=== PATIENT | female | born 1965 | race Caucasian/White ===

== ENCOUNTER → 2017-10-20 10:34 | Outpatient (CLI) | payer OTHER, SELFPAY ==
--- NOTE | 2017-10-20 | DI.ECHO.S_ITS ---
[facility]---------+ [facility] +---------+ : : [address] : [place] : : : : [id number] : : : : Phone: [phone]+ Echocardiogram Report + + :Name: SAMIR HUNG Study Date: 10/20/2017 Height: 63 in : :[facility] Weight: 154 lb : : Gender: Female BSA: 1.7 m2 : :: 1965 Age: 52 yrs BP: 112/72 mmHg: :Reason For Study: Cardiomyopathy : :Ordering Physician: Mingo : :Linda Performed By: Sally Llamas : :Referring: Cynthia Richmond : + + Interpretation Summary The left ventricle is normal in size. Left ventricular ejection fraction is estimated to be 55%. Assessment of diastolic parameters indicates normal left ventricular diastolic function and normal filling pressures. The right ventricle grossly appears normal in size with probable normal systolic function. There is a pacemaker lead in the right ventricle. The right ventricular systolic pressure is estimated at 26 mmHg assuming a right atrial pressure of 3 mm Hg. The left atrial size is normal. Right atrial size is normal. There is no significant valvular heart disease. The aortic root is normal size. Procedure: A two-dimensional transthoracic echocardiogram with color flow and Doppler was performed. The study quality was technically adequate. Comparison is made with the echocardiogram of 09-14-16. The patient has a paced rhythm. Left Ventricle: The left ventricle is normal in size. There is normal left ventricular wall thickness. Left ventricular systolic function is normal without focal wall motion abnormalities. Left ventricular ejection fraction is estimated to be 55%. Assessment of diastolic parameters indicates normal left ventricular diastolic function and normal filling pressures. Right Ventricle: The right ventricle grossly appears normal in size with probable normal systolic function. There is a pacemaker lead in the right ventricle. Atria: The left atrial size is normal. Right atrial size is normal. There is a catheter/pacemaker lead seen in the right atrium. The interatrial septum is intact with no evidence for an atrial septal defect. Mitral Valve: The mitral valve is normal in structure and function. There is no mitral regurgitation noted. Aortic Valve: The aortic valve is trileaflet. The aortic valve opens well. No aortic regurgitation is present. Tricuspid Valve: The tricuspid valve is normal in structure and function. There is trace tricuspid regurgitation. The right ventricular systolic pressure is estimated at 26 mmHg assuming a right atrial pressure of 3 mm Hg. Pulmonic Valve: The pulmonic valve is not well seen, but is grossly normal. There is no pulmonic valvular regurgitation. There is no significant valvular heart disease. Great Vessels: The aortic root is normal size. The dimensions of the ascending aorta are normal. The IVC is of normal diameter and collapses greater than 50% with a sniff. This suggests a low right atrial pressure of 3 mm Hg. Pericardium/ Pleura There is no pericardial effusion. There is no pleural effusion. MMode/2D Measurements & Calculations LVIDd: 5.1 cm Ao root diam: 2.9 cm LVIDs: 3.4 cm Aortic Jxn: 2.7 cm FS: 33.8 % asc Aorta Diam: 3.0 cm EPSS: 0.53 cm Ao Arch Diam (Prox Trans): 2.9 cm IVSd: 0.92 cm LVPWd: 0.92 cm LV fink. diameter/BSA (cm/m^2): 2.9 LV sys. diameter/BSA (cm/m^2): 1.9 LA dimension: 3.0 cm RA long axis: 4.1 cm LA A2 area: 14.6 cm2 RA area: 12.9 cm2 LA A4 area: 13.4 cm2 RA vol: 34.4 ml LA length (vol): 4.1 cm RA : 19.9 ml/m2 LA vol: 40.7 ml IVC diam: 1.7 cm LA vol index: 23.5 ml/m2 RVDd major: 5.3 cm RVD1 (basal): 3.8 cm RVD2 (mid): 3.3 cm Doppler Measurements & Calculations Ao V2 max: 169.4 cm/sec MV E max amadou: 86.4 cm/sec Ao V2 mean: 93.0 cm/sec MV A max amadou: 80.2 cm/sec Ao max P.5 mmHg MV E/A: 1.1 Ao mean P.4 mmHg Med Peak E' Amadou: 7.6 cm/sec Ao V2 VTI: 32.5 cm E/E' med: 11.4 Lat Peak E' Amadou: 9.9 cm/sec E/E' lat: 8.7 E/e' average: 10.1 MV dec time: 0.21 sec MV P1/2t: 62.4 msec TR max amadou: 238.7 cm/sec MV P1/2t max amadou: 86.0 cm/sec TR max P.8 mmHg MVA(P1/2t): 3.5 cm2 PA V2 max: 72.8 cm/sec PA V2 mean: 44.1 cm/sec PA mean P.95 mmHg PA Accel Time: 0.14 sec Reading Physician:CHARLES
== END ==
PROVIDERS: PCP Internal Medicine; Visit Provider Physician Assistant Medical
DX: I42.8 Other cardiomyopathies (principal); Z95.0 Presence of cardiac pacemaker
CPT/HCPCS: 93306

== ENCOUNTER → 2018-05-10 16:13 | Outpatient (CLI) | payer OTHER, SELFPAY ==
--- NOTE | 2018-05-10 16:18 | DI.MG.S_ITS ---
BILATERAL DIGITAL SCREENING MAMMOGRAM 3D/2D WITH CAD: 05/10/2018 CLINICAL: Routine screening. Comparison is made to exams dated: 05/31/2016 mammogram, 05/30/2015 mammogram, and 05/05/2015 mammogram - [facility]. The tissue of both breasts is heterogeneously dense. This may lower the sensitivity of mammography. Current study was also evaluated with a Computer Aided Detection (CAD) system. There is a benign biopsy clip in the left breast. No significant masses, calcifications, or other findings are seen in either breast. There has been no significant interval change. IMPRESSION: NEGATIVE There is no mammographic evidence of malignancy. A 1 year screening mammogram is recommended. This exam was interpreted at Station ID: [id number]. NOTE: For mammograms, a report in lay terms will be sent to the patient. Approximately 15% of breast malignancies will not be visualized mammographically. In the management of a palpable breast mass, a negative mammogram must not discourage biopsy of a clinically suspicious lesion. Electronically Signed By: Yossi swain/darrick:05/10/2018 17:07:54 letter sent: Normal Exam ACR BI-RADS Category 1: Negative 3341F
== END ==
PROVIDERS: Family Provider Internal Medicine; PCP Internal Medicine; Visit Provider Internal Medicine
DX: Z12.31 Encounter for screening mammogram for malignant neoplasm of breast (principal)
CPT/HCPCS: 77063; 77067

== ENCOUNTER 2018-09-11 07:29 | Day surgery (SDC) | payer OTHER, SELFPAY ==
--- NOTE | 2018-09-11 | PATH_ITS ---
[facility] Accession Number: [id number] . 01 Material submitted: . PART A: cecum - CECAL POLYPS X5 PART B: colon - TRANSVERSE COLON POLYP X5 . 02 Diagnosis: A. Cecum, Polyps: Fragments of tubular adenoma and fragments of colonic mucosa with no diagnostic abnormality (5 polyps removed). . B. Transverse Colon, Polyps: Tubular adenoma x4. Colonic mucosa with no diagnostic abnormality, consistent with polypoid redundancy x1. BFI/09/12/2018 . 02 Electronically signed: . Jonathan Matias MD, PhD, Pathologist NPI- [id number] . 01 Gross description: . Part A: CECAL POLYPS X5: Received in formalin are multiple fragment(s) of ceballos, soft tissue measuring 0.1 x 0.1 x 0.1 cm to 0.3 x 0.3 x 0.2 cm which is entirely submitted and submitted entirely in 1 cassette(s) Part B: TRANSVERSE COLON POLYP X5: Received in formalin are multiple fragment(s) of ceballos, soft tissue measuring 0.1 x 0.1 x 0.1 cm to 0.3 x 0.3 x 0.3 cm which is entirely submitted and submitted entirely in 1 cassette(s) /DMC /DMC . 02 Pathologist provided ICD-10: D12.0, D12.3 . 02 CPT . 831714, 535487 Performed at: [facility] [address], [place], [place] [id number] MD Yossi Mcclure MD Phone: [phone] [facility]formed at: [facility] [address] [place], [place] [id number] MD Radha Rivera MD Phone: [phone]
[2018-09-11 08:00] VITALS: BP 123/84; PULSE 108; RESP 17; TEMP 36.6; O2SAT 98; BMI 23.9
[2018-09-11] MEDS: SODIUM CHLORIDE 0.9% 1,000 ML 200 ML IV (08:08)
--- NOTE | 2018-09-11 08:38 | PM.HP.1 ---
History of Present Illness Date Patient Seen: 09/11/18 Time Patient Seen: 08:38 Chief complaint: [id number] Narrative: Health unchanged since recent clinic note on 08/21/2018 Ready for screening colonoscopy All questions answered Patient History Medical History (Updated 08/21/18 @ 09:24 by Cece Marx RN) ICD (implantable cardioverter-defibrillator) battery depletion (Chronic) Meningioma (Chronic) Surgical History (Updated 07/05/17 @ 06:33 by Conversion Provider) Status post arthroscopy Family History (Updated 08/21/18 @ 09:25 by Cece Marx RN) Father Age: 74 Chronic cardiac arrhythmia Hypertension Heart disease Mother Age: 72 COPD (chronic obstructive pulmonary disease) Hypothyroid Sister Age: 54 Hypoglycemia Sister Age: 42 Asthma Social History (Updated 08/21/18 @ 09:27 by Cece Marx RN) marital status: household members: spouse occupational status: employed Smoking Status: Never smoker alcohol intake: current substance use type: does not use Family & Social History Family History (Updated 08/21/18 @ 09:25 by Cece Marx RN) Father Age: 74 Chronic cardiac arrhythmia Hypertension Heart disease Mother Age: 72 COPD (chronic obstructive pulmonary disease) Hypothyroid Sister Age: 54 Hypoglycemia Sister Age: 42 Asthma Social History: household members spouse Tobacco & Substance use: Smoking Status Never smoker alcohol intake current Meds Home Medications Medication Instructions Recorded Confirmed Type lisinopril 2.5 mg PO QDAY #0 09/28/16 09/11/18 History metoprolol succinate [Toprol XL] 25 mg PO QDAY #0 09/28/16 08/21/18 History cyanocobalamin (vitamin B-12) 1,000 mcg PO QDAY #0 05/17/17 09/11/18 History sumatriptan 25 mg tablet 25 mg PO Q2-4H PRN 08/21/18 08/21/18 History topiramate XR 25 mg 25 mg PO DAILY 08/21/18 08/21/18 History capsule,extended release 24 hr Allergies Allergy/AdvReac Type Severity Reaction Status Date / Time mushroom Allergy Unknown Verified 09/11/18 07:51 venom-honey bee Allergy Unknown Verified 09/11/18 07:51 Exam Vital Signs (past 8 hours): - 09/11/18 08:00 Temperature 97.8 F Pulse Rate 108 H Respiratory Rate 17 Blood Pressure 123/84 Pulse Oximetry 98 Oxygen Delivery Method Room Air
[2018-09-11] MEDS: MIDAZOLAM 5 MG/5 ML VIAL IV (08:58)
[2018-09-11] MEDS: fentaNYL 250 MCG/5 ML INJ IV (08:58)
[2018-09-11] MEDS: GLUCAGON,HUMAN RECOMBINANT 1 MG/ML VIAL IV (09:25)
--- NOTE | 2018-09-11 09:33 | PM.OP.ENDO ---
Operative Date/Time/Diagnoses Date of procedure: 09/11/18 Time of procedure: 09:33 Pre-op diagnosis: Screening colonoscopy for colorectal cancer Post-op diagnosis: same Procedure & Clinicians Study performed: Complete screening colonoscopy Cold biopsy polypectomy times 10 Same procedure as scheduled: Yes Indications: 53-year-old woman presents for 1st ever screening colonoscopy, no intestinal symptoms Surgeon: Erick Welsh Procedure Notes SCOAP/Timeout: completed Procedure in detail: Patient was brought to the endoscopy suite, a time-out was completed. She was sedated with a total over the course of her procedure of 5 mg of midazolam and 175 mcg fentanyl. A digital rectal exam was performed without mass or lesions. 160 cm colonoscope was introduced through the anus and was advanced to the cecum without much difficulty. Cecum was identified with the appendiceal orifice and a prominent ileocecal valve. The scope was then slowly withdrawn. Within the cecum and proximal right colon 5 small polyps were identified -each was removed with Jumbo biopsy forceps. There were a small number of diverticuli noted in the right colon. Removing the scope further within the transverse colon an additional 5 small sessile polyps were identified. These were similarly removed with the Jumbo biopsy forceps. Carefully withdrawing the scope through the left sigmoid colon and rectum no further mucosal lesions were identified. There was a significant amount of sigmoid diverticulosis. The scope was retroflexed in the distal rectum and no additional lesions were identified Prep was excellent Scope withdrawal time: 31 minutes Sedation minutes: 47 Findings: diverticulosis and polyp Specimen(s): other (Cecal polyp x5, transverse colon polyps x5) Complications: none Impression: Right-sided diverticulosis Extensive sigmoid diverticulosis Five cecal polyps status post removal Five transverse colon polyp status post removal Recommendations: Colonscopy in 3 years Plan for aftercare: PACU then home Follow-up in office in 2 weeks -for consideration of genetic testing given total of 10 polyps Follow up: weeks Disposition: PACU
[2018-09-11 09:37] VITALS: BP 123/82; PULSE 78; RESP 12; TEMP 37.4; O2SAT 99
[2018-09-11 10:10] VITALS: BP 92/64; PULSE 65; TEMP 36.7; O2SAT 99
--- NOTE | 2018-09-11 10:17 | SUR.PHASEII ---
0937 Arrived from endo room, drowsy. VS stable. Denied pain, abd soft. Call light within reach. 1010 BP 92/64, pt reported mild dizziness. Additional water provided.
[2018-09-11 10:27] VITALS: BP 96/72
== END 2018-09-11 10:31 | disposition home or self-care (01) ==
PROVIDERS: Family Provider Internal Medicine; PCP Internal Medicine; Visit Provider Surgery
PROC: 0DJD8ZZ Inspection of Lower Intestinal Tract, Via Natural or Artificial Opening Endoscopic (ICD-10-PCS; CPT 45378; principal; 2018-09-11 08:45)
DX: Z12.11 Encounter for screening for malignant neoplasm of colon (principal); K57.30 Diverticulosis of large intestine without perforation or abscess without bleeding; D12.0 Benign neoplasm of cecum; D12.3 Benign neoplasm of transverse colon
CPT/HCPCS: 45380; 99152; 99153; J1610; J2250; J3010

== ENCOUNTER → 2019-11-15 07:13 | Outpatient (CLI) | payer OTHER, SELFPAY ==
[2019-11-15 08:09] LABS: Alanine Aminotransferase 16 IU/L (<35); Albumin 4.6 g/dL (3.5-5.0); Albumin Globulin Ratio 1.8 (1.0-2.8); Alkaline Phosphatase 70 U/L (38-126); Aspartate Aminotransferase 24 IU/L (14-36); BUN Creatinine Ratio 12.5 (6-22); Bilirubin Total 0.4 mg/dL (0.2-1.3); Blood Urea Nitrogen 12 mg/dL (7-17); Calcium 9.7 mg/dL (8.4-10.2); Carbon Dioxide 28 mmol/L (22-32); Chloride 105 mmol/L (98-107); Estimated Glomerular Filt Rate > 60.0 mL/min (>60); Globulin 2.6 g/dL (1.7-4.1); Glucose 104 mg/dL (70-100); HEMOLYSIS < 15 (0-50); Sodium 139 mmol/L (137-145); Total Protein 7.2 g/dL (6.3-8.2)
== END ==
PROVIDERS: Family Provider Internal Medicine; PCP Internal Medicine; Referring Provider Internal Medicine Cardiovascular Disease; Visit Provider Internal Medicine Cardiovascular Disease
DX: I46.9 Cardiac arrest, cause unspecified (principal); I49.01 Ventricular fibrillation
CPT/HCPCS: 36415; 80053

== ENCOUNTER → 2020-05-07 17:34 | Outpatient (CLI) | payer OTHER, SELFPAY ==
--- NOTE | 2020-05-07 17:37 | DI.MG.S_ITS ---
BILATERAL DIGITAL SCREENING MAMMOGRAM 3D/2D WITH CAD: 05/07/2020 CLINICAL: Routine screening. Family history of breast cancer. Comparison is made to exams dated: 05/10/2018 mammogram, 05/31/2016 mammogram, and 05/30/2015 mammogram - [facility]. The tissue of both breasts is heterogeneously dense. This may lower the sensitivity of mammography. Current study was also evaluated with a Computer Aided Detection (CAD) system. There is a stable benign focal asymmetry in both breasts. There also is a biopsy clip in the left breast. No significant masses, calcifications, or other findings are seen in either breast. There has been no significant interval change. IMPRESSION: BENIGN There is no mammographic evidence of malignancy. A 1 year screening mammogram is recommended. This exam was interpreted at Station ID: [id number]. NOTE: For mammograms, a report in lay terms will be sent to the patient. Approximately 15% of breast malignancies will not be visualized mammographically. In the management of a palpable breast mass, a negative mammogram must not discourage biopsy of a clinically suspicious lesion. Electronically Signed By: Sunil Ramirez acr/penrad:05/08/2020 08:22:57 letter sent: Normal Exam ACR BI-RADS Category 2: Benign Finding(s) 3342F
== END ==
PROVIDERS: Family Provider Internal Medicine; PCP Internal Medicine; Referring Provider Internal Medicine; Visit Provider Internal Medicine
DX: Z12.31 Encounter for screening mammogram for malignant neoplasm of breast (principal); Z80.3 Family history of malignant neoplasm of breast
CPT/HCPCS: 77063; 77067

== ENCOUNTER → 2020-11-24 07:13 | Outpatient (CLI) | payer OTHER, SELFPAY ==
[2020-11-24 08:30] LABS: Alanine Aminotransferase 27 IU/L (<35); Albumin 4.5 g/dL (3.5-5.0); Albumin Globulin Ratio 1.8 (1.0-2.8); Alkaline Phosphatase 84 U/L (38-126); Aspartate Aminotransferase 35 IU/L (14-36); BUN Creatinine Ratio 19.2 (6-22); Bilirubin Total 0.4 mg/dL (0.2-1.3); Blood Urea Nitrogen 14 mg/dL (7-17); Calcium 9.8 mg/dL (8.4-10.2); Carbon Dioxide 31 mmol/L (22-32); Chloride 103 mmol/L (98-107); Estimated Glomerular Filt Rate > 60.0 mL/min (>60); Globulin 2.5 g/dL (1.7-4.1); Glucose 95 mg/dL (70-100); HEMOLYSIS < 15 (0-50); Potassium 4.9 mmol/L (3.4-5.1); Sodium 138 mmol/L (137-145)
== END ==
PROVIDERS: Family Provider Internal Medicine; PCP Internal Medicine; Referring Provider Internal Medicine Cardiovascular Disease; Visit Provider Internal Medicine Cardiovascular Disease
DX: I42.0 Dilated cardiomyopathy (principal)
CPT/HCPCS: 36415; 80053

== ENCOUNTER 2021-05-18 13:10 | Emergency (ER) | payer OTHER, SELFPAY ==
[2021-05-18 13:47] VITALS: BP 137/81; PULSE 103; RESP 12; TEMP 37; O2SAT 96; BMI 28.3
--- NOTE | 2021-05-18 15:43 | PC.NURSE ---
A&Ox4. Speaking clearly. No vision changes. No LOC
--- NOTE | 2021-05-18 16:06 | ED_ITS ---
HPI - Wound/Laceration <TRI Johnson - Last Filed: 05/18/21 16:17> General Chief Complaint: Wound/Laceration Stated Complaint: Hit head on corner of cabinet- lac. Time Seen by Provider: 05/18/21 15:39 Source: patient Mode of arrival: Ambulatory History of Present Illness HPI narrative: 56-year-old female presents to the emergency department complaining of lack to her scalp on the right side when she had her head on a cabinet. Patient is not on any blood thinners however she had bleeding from this cut on her scalp that in stop right away, and a pressure dressing was used. Patient was in the waiting room for approximately 2-1/2 hours, by the time she got a room, her wound had stopped bleeding. Patient denies any anticoagulant use, she denies a headache, she denies any nausea, LOC, vomiting, difficulty concentrating, or vision changes. Patient states her last tetanus was within the last 10 years. Related Data Home Medications Medication Instructions Recorded Confirmed lisinopril 5 mg tablet 2.5 mg PO QDAY #0 09/28/16 09/21/18 metoprolol succinate 25 mg 25 mg PO QDAY #0 09/28/16 09/21/18 tablet,extended release 24 hr (Toprol XL) cyanocobalamin (vitamin B-12) 1,000 mcg PO QDAY #0 05/17/17 09/21/18 1,000 mcg tablet,extended release sumatriptan succinate 25 mg tablet 25 mg PO Q2-4H PRN 08/21/18 09/21/18 topiramate 25 mg capsule,extended 25 mg PO DAILY 08/21/18 09/21/18 release 24 hr Allergies Allergy/AdvReac Type Severity Reaction Status Date / Time mushroom Allergy Unknown Verified 09/21/18 13:58 venom-honey bee Allergy Unknown Verified 09/21/18 13:58 Review of Systems <TRI Johnson - Last Filed: 05/18/21 16:17> Review of Systems Narrative: General: denies fever, chills, malaise, sweats, fatigue Head/Neck: denies headache, neck pain, dizziness Eyes: denies visual changes, eye pain Cardio: denies chest pain, palpitations, edema Respiratory: denies dyspnea, cough, orthopnea GI: denies abdominal pain, nausea, vomiting, or diarrhea : denies dysuria, hematuria, urinary retention, frequency or incontinence MSK: denies joint pain, muscle weakness Skin: denies rash, itching, skin lesions or other Neuro: denies numbness, tingling Patient History <TRI Johnson - Last Filed: 05/18/21 16:17> Medical History ICD (implantable cardioverter-defibrillator) battery depletion Meningioma Surgical History Status post arthroscopy Family History Father Age: 77 Chronic cardiac arrhythmia Hypertension Heart disease Mother Age: 75 COPD (chronic obstructive pulmonary disease) Hypothyroid Sister Age: 57 Hypoglycemia Sister Age: 45 Asthma Social History marital status: household members: spouse occupational status: employed Smoking Status: Never smoker alcohol intake: current substance use type: does not use Smoking Status: Never smoker alcohol intake frequency: 0-2 drinks per day Substance Use Type: does not use Exam <TRI Johnson - Last Filed: 05/18/21 16:17> Narrative Exam Narrative: Independently reviewed vitals signs and nursing notes. General: cooperative, comfortable, in no acute distress, well developed and well groomed Head: Small less than 1 cm laceration to the left parietal scalp, wound edges are approximated, not able to separate at this time, it is scabbed over. Discussed using 1 suture or 1 stable to hold wound together well but there is no bleeding, patient reports she would rather not have any, and she will be careful to not bump her head. Symmetrical facial expressions Neck: supple, atraumatic, without lymphadenopathy. Eyes: pupils equal round and reactive, EOMI, conjunctiva normal Nose: nares patent, no rhinorrhea Mouth/Throat: uvula midline, moist mucus membranes Cardiovascular: regular rate and rhythm, no peripheral edema, warm extremities Respiratory: normal effort, able to speak in complete sentences, no audible whee zing, stridor, or rales. No retractions or tachypnea. GI: abdomen soft, nontender to palpation, nondistended, no masses, no exquisite tenderness with exam, without guarding or rebound. MSK: moves all extremities, ambulatory w/steady gait, neurovascularly intact, no weakness Skin: brisk capillary refill, no rash, no erythema Neuro: normal speech and cognition, A&O x3, normal tone Psych: mental status is grossly normal, congruent mood, normal affect, pleasant and cooperative Initial Vital Signs Initial Vital Signs: Vital Signs Temperature 98.6 F 05/18/21 13:47 Pulse Rate 103 H 05/18/21 13:47 Respiratory Rate 12 05/18/21 13:47 Blood Pressure 137/81 05/18/21 13:47 Pulse Oximetry 96 05/18/21 13:47 <Nallely Iqbal DO - Last Filed: 05/19/21 07:55> Initial Vital Signs Initial Vital Signs: Vital Signs Temperature 98.6 F 05/18/21 13:47 Pulse Rate 103 H 05/18/21 13:47 Respiratory Rate 12 05/18/21 13:47 Blood Pressure 137/81 05/18/21 13:47 Pulse Oximetry 96 05/18/21 13:47 Scores <TRI Johnson - Last Filed: 05/18/21 16:17> Polish CT Head Rule Age <16 years old: No Patient on blood thinners: No Seizure after injury: No Exclusion: Patient NOT Excluded, Proceed to next steps GCS < 15 at 2 hr post trauma: No Suspected open or depressed skull fracture: No Any sign of basilar skull fracture (hemotympanum, raccoon eyes, Hernandez's sign, CSF norberto-/rhinorrhea): No Two or more episodes of vomiting: No Age greater or equal to 65 years: No Retrograde amnesia to the event greater or equal to 30 min: No Dangerous Mechanism (pedestrian vs. mv, occupant ejected from mv, fall from >3 ft or > 5 stairs): No Recommendation: CT unnecessary <Nallely Iqbal DO - Last Filed: 05/19/21 07:55> Polish CT Head Rule Exclusion: Patient NOT Excluded, Proceed to next steps Recommendation: CT unnecessary Course <TRI Johnson - Last Filed: 05/18/21 16:17> Orders Ordered: Discontinued Medications Lidocaine/Sodium Bicarbonate (Lido 1%/Sod Bicarb 8.4% (10ml) 10 Ml Syringe) 10 ml INJ NOW ONE Stop: 05/18/21 16:00 Vital Signs Vital signs: Vital Signs - 8 hr 05/18/21 13:47 Temperature 98.6 F Pulse Rate 103 H Respiratory Rate 12 Blood Pressure 137/81 Pulse Oximetry 96 <Nallely Iqbal DO - Last Filed: 05/19/21 07:55> Orders Ordered: Discontinued Medications Lidocaine/Sodium Bicarbonate (Lido 1%/Sod Bicarb 8.4% (10ml) 10 Ml Syringe) 10 ml INJ NOW ONE Stop: 05/18/21 16:00 Vital Signs Vital signs: Vital Signs - 8 hr 05/18/21 13:47 Temperature 98.6 F Pulse Rate 103 H Respiratory Rate 12 Blood Pressure 137/81 Pulse Oximetry 96 [facility] - Wound/Laceration <TRI Johnson - Last Filed: 05/18/21 16:17> [facility] Narrative Medical decision making narrative: 56-year-old female presents to the emergency department from her workplace complaining of hitting her head on a cabinet and sustaining a laceration to her scalp. Patient denies any loss of consciousness, vision changes, mental status changes, dizziness, headache, nausea, vomiting or other. Patient has a small less than 1 cm laceration to her left scalp, she had a pressure dressing on for approximately 2-1/2 hours, the wound is fully closed, was not able to separate the wound edges and did not attempt to because the bleeding had stopped, there is no hematoma, crepitus, or palpable skull fracture. Patient denies any complain right now, states that she wants go back to work, CT not obtain according to the Polish head CT rule it was not indicated. Patient was given strict return precautions to the emergency department. [id number]. Instructed patient to shower gently, to not scrub her head in the shower and if it starts bleeding again to apply pressure dressing. Patient is appropriate and amenable to discharge home. Vital signs are stable on repeat examination is unremarkable. Patient has been informed of results. Patient has been given strict return to ER precautions for any new or worsening symptoms. Patient understands to follow up closely with outpatient providers as instructed. Patient understands plan and agrees to discharge home. All questions and concerns answered at this time. Discharge Plan Departure Patient Disposition: Home Clinical Impression: Work related injury Laceration of scalp Qualifiers: Encounter type: initial encounter Qualified Code(s): S01.01XA - Laceration without foreign body of scalp, initial encounter Instructions: Concussion Activity Restrictions/Additional Instructions: *You have been diagnosed with a small laceration to her scalp approximately 1 cm. It is well-approximated right now, I do not think you need to have this sutured because it appears to have closed well on its own from your pressure dressing. Please avoid any scrubbing of your head, or hitting her head again if he can. Please shower your hair gently. Please return to the emergency department if you are having any memory problems, speech issues, not walking normally, have ongoing headache, or vomiting. I do not think that you have a concussion at this time. [id number] *What to do: *Please continue to take your regular medications as directed. [ ] New medication prescriptions sent to your pharmacy: [ ] [ ] New medication written as a paper prescription [x ] No new medications given *Please follow up with your primary care provider in 2-3 days, call for an appointment. Let them know you were seen in the Emergency Department and that we asked that you be seen for follow-up. We will electronically transmit a record of today's note if your PCP is in our system *If you do not have a primary care provider please contact [phone] to establish care with one of the [facility] primary care providers. *Return to Emergency Department if you should have any new, worsening or concerning symptoms, such as [fever greater than 101F, chills, worsening pain, persistent vomiting or other bothersome symptoms] Prescriptions: No Action lisinopril 5 MG tablet 2.5 mg PO QDAY Qty: 0 0RF metoprolol succinate [Toprol XL] 25 MG tablet extended release 24 hr 25 mg PO QDAY Qty: 0 0RF cyanocobalamin (vitamin B-12) 1,000 MCG tablet extended release 1,000 mcg PO QDAY Qty: 0 0RF sumatriptan succinate 25 mg tablet 25 mg PO Q2-4H PRN (Reason: Headache) 0RF topiramate 25 mg capsule,extended release 24hr 25 mg PO DAILY 0RF Referrals: Basilio,Cynthia, [facility] [Primary Care Provider] - <Nallely Iqbal DO - Last Filed: 05/19/21 07:55> Cosign ED Attending Fahadature Attestation: I was immediately available in the department for consultation. Documentation has been reviewed. I agree with assessment and plan.
== END 2021-05-18 16:13 | disposition home or self-care (01) ==
PROVIDERS: Emergency Provider Nurse Practitioner Critical Care Medicine; Family Provider Internal Medicine; PCP Internal Medicine
DX: S01.01XA Laceration without foreign body of scalp, initial encounter (principal); W22.8XXA Striking against or struck by other objects, initial encounter
CPT/HCPCS: 99282

== ENCOUNTER → 2021-12-10 08:03 | Outpatient (CLI) | payer OTHER, SELFPAY ==
[2021-12-10 09:52] LABS: Alanine Aminotransferase 26 IU/L (<35); Albumin 4.6 g/dL (3.5-5.0); Albumin Globulin Ratio 1.5 (1.0-2.8); Alkaline Phosphatase 83 U/L (38-126); Aspartate Aminotransferase 30 IU/L (14-36); BUN Creatinine Ratio 16.5 (6-22); Bilirubin Total 0.6 mg/dL (0.2-1.3); Blood Urea Nitrogen 13 mg/dL (7-17); Calcium 9.6 mg/dL (8.4-10.2); Carbon Dioxide 29 mmol/L (22-32); Chloride 100 mmol/L (98-107); Estimated Glomerular Filt Rate > 60 mL/min (>60); Glucose 95 mg/dL (70-100); HEMOLYSIS < 15 (0-50); Potassium 4.5 mmol/L (3.4-5.1); Sodium 140 mmol/L (137-145); Total Protein 7.6 g/dL (6.3-8.2)
== END ==
PROVIDERS: Family Provider Internal Medicine; PCP Internal Medicine; Referring Provider Internal Medicine Cardiovascular Disease; Visit Provider Internal Medicine Cardiovascular Disease
DX: I42.0 Dilated cardiomyopathy (principal)
CPT/HCPCS: 36415; 80053

== ENCOUNTER → 2023-05-23 08:28 | Outpatient (CLI) | payer OTHER, MEDICAID, SELFPAY ==
[2023-05-23 10:01] LABS: Alanine Aminotransferase 11 IU/L (<35); Albumin 4.1 g/dL (3.5-5.0); Albumin Globulin Ratio 1.3 (1.0-2.8); Alkaline Phosphatase 84 U/L (38-126); Aspartate Aminotransferase 19 IU/L (14-36); BUN Creatinine Ratio 15.3 (6-22); Bilirubin Total 0.7 mg/dL (0.2-1.3); Blood Urea Nitrogen 11 mg/dL (7-17); Calcium 9.5 mg/dL (8.4-10.2); Carbon Dioxide 27 mmol/L (22-32); Chloride 104 mmol/L (98-107); Estimated Glomerular Filt Rate > 60 mL/min (>60); Globulin 3.2 g/dL (1.7-4.1); Glucose 92 mg/dL (70-100); HEMOLYSIS < 15 (0-50); Potassium 4.5 mmol/L (3.4-5.1); Sodium 138 mmol/L (137-145); Total Protein 7.3 g/dL (6.3-8.2)
== END ==
LOC: LAB 08:32
PROVIDERS: Family Provider Internal Medicine; PCP Family Medicine; Referring Provider Physician Assistant; Visit Provider Physician Assistant
DX: I42.8 Other cardiomyopathies (principal)
CPT/HCPCS: 36415; 80053

== ENCOUNTER → 2023-06-30 10:23 | Outpatient (CLI) | payer OTHER, MEDICAID, SELFPAY ==
--- NOTE | 2023-06-30 10:24 | DI.ECHO.S_ITS ---
[facility]---------+ [facility] : : [id number] : : [place] : : [id number] : : Phone: [phone] Echocardiogram Report + + :Name: SAMIR HUNG Study Date: 06/30/2023 Height: 63 in : :[facility] ReadingLocation: Weight: 138 lb : : Gender: Female BSA: 1.7 m2 : :: 1965 Age: 58 yrs BP: 120/84 mmHg: :Reason For Study: NONISCHEMIC CARDIOMYOPATHY : :Ordering Physician: SHI, : :DYLON Farrar Performed By: Nathaniel Florez : :Referring: DYLON OSULLIVAN : + + Interpretation Summary Sinus bradycardia with wide QRS complexes. Normal LV size and wall thickness; global hypokinesis. EF is 45-50% Borderline RV enlargement; otherwise normal chamber sizes. No significant valvular abnormalities. Compared to prior study 10/20/2017, LV is less dynamic. Procedure: A two-dimensional transthoracic echocardiogram with color flow and Doppler was performed. The study quality was technically adequate. Comparison is made with the echocardiogram of 10/20/2017. The heart rate ranged between 50-63 bpm during the study. Left Ventricle: The left ventricle is normal in size and wall thickness. The ejection fraction is estimated to be 45-50%. Right Ventricle: The right ventricle is borderline dilated. The right ventricular systolic function is normal. Atria: The left atrial size is normal. Right atrial size is normal. The interatrial septum grossly appears intact with no obvious evidence for an atrial septal defect. Mitral Valve: The mitral valve is normal in structure and function. There is no mitral valve stenosis. There is trace mitral regurgitation. Aortic Valve: The aortic valve is grossly normal. There is no aortic valve stenosis. No aortic regurgitation is present. Tricuspid Valve: The tricuspid valve is normal in structure and function. There is no tricuspid stenosis. There is mild tricuspid regurgitation. The right ventricular systolic pressure is estimated to be at least 23 mmHg based on an estimated right atrial pressure of 3 mm Hg. Pulmonic Valve: The pulmonic valve is not well visualized. There is no pulmonic valvular stenosis. There is no pulmonic valvular regurgitation. Great Vessels: The aortic root is normal size. The aortic arch could not be visualized. The IVC is of normal diameter and collapses greater than 50% with a sniff. This suggests a low right atrial pressure of 3 mm Hg. Pericardium/ Pleura There is no pericardial effusion. There is no pleural effusion. MMode/2D Measurements & Calculations LVIDd: 4.6 cm LVOT diam: 2.1 cm LVIDs: 4.0 cm Ao root diam: 3.0 cm FS: 13.5 % Ao Arch Diam (Prox Trans): 2.6 cm IVSd: 0.99 cm LVPWd: 1.0 cm LV fink. diameter/BSA (cm/m^2): 2.8 LV sys. diameter/BSA (cm/m^2): 2.4 LA A2 area: 12.4 cm2 RA long axis: 4.9 cm LA A4 area: 15.4 cm2 RA area: 14.2 cm2 LA length (vol): 4.7 cm RA vol: 34.7 ml LA vol: 34.7 ml RA : 21.0 ml/m2 LA vol index: 21.0 ml/m2 IVC diam: 1.9 cm RVD1 (basal): 3.7 cm RVD2 (mid): 3.2 cm TAPSE: 2.1 cm Doppler Measurements & Calculations Ao V2 max: 140.6 cm/sec LVOT Max Amadou: 108.6 cm/sec Ao V2 mean: 101.7 cm/sec LV V1 max P.7 mmHg Ao max P.9 mmHg LV V1 VTI: 21.7 cm Ao mean P.5 mmHg BRUCE(I,D): 2.4 cm2 Ao V2 VTI: 31.7 cm BRUCE(V,D): 2.7 cm2 sev ratio: 0.68 BRUCE indexed to BSA (cm^2/m^2): 1.4 MV E max amadou: 66.2 cm/sec TR max amadou: 225.4 cm/sec MV A max amadou: 78.9 cm/sec TR max P.3 mmHg MV E/A: 0.84 PA V2 max: 92.8 cm/sec Med Peak E' Amadou: 6.7 cm/sec PA V2 mean: 59.1 cm/sec E/E' med: 9.8 PA mean P.6 mmHg Lat Peak E' Amadou: 10.2 cm/sec PA pr(Accel): 20.8 mmHg E/E' lat: 6.5 E/e' average: 8.2 MV dec time: 0.26 sec SV(LVOT): 75.0 ml Electronically signed by: Vickie Garrido M.D. on Reading Physician:07/01/2023 01:37 AM
== END ==
PROVIDERS: Family Provider Internal Medicine; PCP Family Medicine; Referring Provider Physician Assistant; Visit Provider Physician Assistant
DX: I07.1 Rheumatic tricuspid insufficiency (principal); I42.8 Other cardiomyopathies
CPT/HCPCS: 93306